=== PATIENT | male | born 1960 | race African-American/Black ===

== ENCOUNTER 2019-08-26 23:40 | Emergency (ER) | payer SELFPAY ==
[~2019-08-26] VITALS: Ht 182.9 cm; Wt 84.0 kg
[2019-08-26 23:43] VITALS: BP 121/80
== END 2019-08-27 00:31 | disposition home or self-care (01) ==
LOC: ER 23:40
DX: R05 Cough (principal); F14.10 Cocaine abuse, uncomplicated; R45.6 Violent behavior
CPT/HCPCS: 99283